=== PATIENT | male | born 1960 | race Hispanic/Latino ===

== ENCOUNTER 2017-04-02 06:52 | Inpatient (IN) | payer OTHER, SELFPAY ==
[~2017-04-02] VITALS: Ht 157.5 cm; Wt 81.9 kg
[2017-04-02] MEDS ORDERED: SODIUM CHLORIDE 0.9% 1000ML 1,000 ML IV ONE ×2 (07:23→11:13)
[2017-04-02] MEDS ORDERED: ONDANSETRON HCL 4 MG/2 ML VIAL ONE (07:23)
[2017-04-02] MEDS ORDERED: MORPHINE SULFATE 4 MG/1ML SYG ONE ×2 (07:24→09:44)
[2017-04-02 07:26] LABS: BASOPHILS % (AUTO) 0.4 % (0.0-5.0); EOSINOPHILS % (AUTO) 0.3 % (0.0-8.0); HEMATOCRIT 45.4 % (42-54); LYMPHOCYTES % (AUTO) 7.6 % (21.0-51.0); MEAN CORPUSCULAR HEMOGLOBIN 30.3 pg (27.0-33.0); MEAN CORPUSCULAR HGB CONC 33.6 g/dL (32.0-36.0); MEAN CORPUSCULAR VOLUME 90.2 fL (79-99); MONOCYTES % (AUTO) 4.5 % (3.0-13.0); NEUTROPHILS % (AUTO) 87.2 % (40.0-77.0); PLATELET COUNT (AUTO) 198 K/uL (130-400); RED BLOOD CELL COUNT(AUTO) 5.04 MIL/uL (4.50-6.20); RED CELL DISTRIBUTION WIDTH 13.7 % (11.0-15.5); WHITE BLOOD COUNT (AUTO) 15.2 K/uL (4.8-10.8)
[2017-04-02] MEDS ORDERED: IOPAMIDOL-370 75 ML VIAL IV ONE (07:32)
[2017-04-02 07:45] LABS: POTASSIUM 3.8 mmol/L (3.5-5.1)
[2017-04-02 07:51] LABS: ALBUMIN 3.9 g/dL (3.5-5.0); BILIRUBIN,TOTAL 0.5 mg/dL (0.2-1.0); TOTAL PROTEIN, SERUM 7.9 g/dL (6.0-8.3)
[2017-04-02 08:56] LABS: APPEARANCE,URINE Clear (CLEAR); BILIRUBIN,URINE Negative (NEGATIVE); COLOR,URINE Yellow (YELLOW); GLUCOSE, URINE (UA) Negative (NEGATIVE); KETONES,URINE Trace mg/dL (NEGATIVE); LEUKOCYTE ESTERASE ,URINE Negative (NEGATIVE); NITRATE,URINE Negative (NEGATIVE); OCCULT BLOOD,URINE Negative (NEGATIVE); PH,URINE 7.5 (5.0-8.0); PROTEIN,URINE Negative (NEGATIVE); UROBILINOGEN,URINE 0.2 mg/dL (0.2-1.0)
[2017-04-02] MEDS ORDERED: ZOSYN 3.375GM+NS 50ML 50 ML IV ONE (09:24)
[2017-04-02 09:26] LABS: BACTERIA,URINE Rare /HPF (None Seen); RBC,URINE 0-1 /HPF (0-1); WBC,URINE None Seen /HPF (0-1)
[2017-04-02 09:27] LABS: SQUAMOUS EPITHELIAL CELL,UR None Seen /LPF (0-2)
[2017-04-02] MEDS ORDERED: KETOROLAC TROMETHAMINE 15MG/ML ONE ×2 (10:04→10:06)
[2017-04-02] MEDS ORDERED: LACTULOSE 20 GM/30 ML UDCUP PO PRN (10:30)
[2017-04-02] MEDS ORDERED: ACETAMINOPHEN 325 MG TAB PO PRN ×2 (10:30)
[2017-04-02] MEDS ORDERED: ONDANSETRON HCL 4 MG/2 ML VIAL IV PRN (10:30)
[2017-04-02] MEDS ORDERED: LABETALOL 20 MG/4 ML DISP.SYRIN IV PRN (10:30)
[2017-04-02] MEDS ORDERED: GUAIFENESIN-DM 200/20 MG 10 ML PO PRN (10:30)
[2017-04-02] MEDS ORDERED: MORPHINE SULFATE 2 MG/ML 1ML SYG IV PRN (10:30)
[2017-04-02] MEDS ORDERED: NITROGLYCERIN 0.4 MG SL TAB SL PRN (10:30)
[2017-04-02] MEDS ORDERED: MAG HYDROX/AL HYDROX/SIMETH ES 30 ML SUSP UDCUP PO PRN (10:30)
[2017-04-02] MEDS ORDERED: ACETAMINOPHEN-CODEINE 300/30MG TAB PO PRN ×2 (10:30)
[2017-04-02] MEDS ORDERED: LEVOFLOXACIN 500 MG/D5W 100 ML 100 ML ONE (11:13)
[2017-04-02] MEDS ORDERED: FAMOTIDINE/PF 20 MG/2 ML VIAL IV ONE (11:14)
[2017-04-02 13:00] VITALS: BP 158/92
[2017-04-02] MEDS: METRONIDAZOLE 500MG/100ML BAG 100 ML IV SCH ×2 (14:29→20:39)
[2017-04-02] MEDS: SODIUM CHLORIDE 0.9% 1000ML 1,000 ML IV SCH ×2 (14:30→20:39)
[2017-04-02] MEDS: MORPHINE SULFATE 4 MG/1ML SYG IV PRN ×2 (14:46→19:33)
[2017-04-02 16:00] VITALS: BP 128/84
[2017-04-02 19:59] VITALS: BP 150/90
[2017-04-02] MEDS: FAMOTIDINE/PF 20 MG/2 ML VIAL IV SCH (20:39)
[2017-04-03] VITALS (30 sets, daily range): BP systolic 98–156; BP diastolic 51–98
[2017-04-03] MEDS: METRONIDAZOLE 500MG/100ML BAG 100 ML IV SCH ×2 (04:57→14:09)
[2017-04-03] MEDS: SODIUM CHLORIDE 0.9% 1000ML 1,000 ML IV SCH ×2 (04:59→20:45)
[2017-04-03 06:11] LABS: HEMATOCRIT 40.6 % (42-54); MEAN CORPUSCULAR HEMOGLOBIN 30.7 pg (27.0-33.0); MEAN CORPUSCULAR HGB CONC 33.8 g/dL (32.0-36.0); PLATELET COUNT (AUTO) 178 K/uL (130-400); RED BLOOD CELL COUNT(AUTO) 4.46 MIL/uL (4.50-6.20); RED CELL DISTRIBUTION WIDTH 14.2 % (11.0-15.5); WHITE BLOOD COUNT (AUTO) 12.4 K/uL (4.8-10.8)
[2017-04-03] MEDS ORDERED: BUPIVACAINE/PF 0.5% 30ML VIAL ONE (06:11)
[2017-04-03 06:31] LABS: CREATININE 1.4 mg/dL (0.5-1.5); POTASSIUM 3.6 mmol/L (3.5-5.1)
[2017-04-03] MEDS ORDERED: SUCCINYLCHOLINE 200MG/10ML SYR ONE (07:15)
[2017-04-03] MEDS ORDERED: ONDANSETRON HCL 4 MG/2 ML VIAL ONE ×2 (07:15→07:39)
[2017-04-03] MEDS ORDERED: DEXAMETHASONE SOD PHOSPHATE 10MG/ML 1ML VIAL ONE ×2 (07:15→07:39)
[2017-04-03] MEDS ORDERED: LIDOCAINE PF 2% 5ML ABBOJECT ONE (07:15)
[2017-04-03] MEDS ORDERED: MIDAZOLAM HCL 1 MG/ML 2ML VIAL ONE (07:16)
[2017-04-03] MEDS ORDERED: FENTANYL CITRATE PF 50 MCG/1 ML 2ML VIAL ONE ×2 (07:16→07:40)
[2017-04-03] MEDS ORDERED: CALDOLOR 800MG+NS 250ML 250 ML IV ONE (07:20)
[2017-04-03] MEDS ORDERED: ROCURONIUM BROMIDE 10MG/1ML 5ML VL ONE (07:21)
[2017-04-03] MEDS ORDERED: PROPOFOL 10 MG/ML 20ML VIAL IV ONE (07:21)
[2017-04-03] MEDS ORDERED: LIDOCAINE HCL 4% LTA SOL 4 ML VIAL ONE (07:39)
[2017-04-03] MEDS: FAMOTIDINE/PF 20 MG/2 ML VIAL IV SCH ×2 (09:00→20:45)
[2017-04-03] MEDS: LEVOFLOXACIN 500 MG/D5W 100 ML 100 ML IV SCH (09:39)
[2017-04-04] VITALS (7 sets, daily range): BP systolic 150–185; BP diastolic 88–116
[2017-04-04] MEDS: METRONIDAZOLE 500MG/100ML BAG 100 ML IV SCH ×4 (02:02→20:41)
[2017-04-04] MEDS: SODIUM CHLORIDE 0.9% 1000ML 1,000 ML IV SCH ×2 (02:24→12:28)
[2017-04-04] MEDS: FAMOTIDINE/PF 20 MG/2 ML VIAL IV SCH ×2 (08:18→20:47)
[2017-04-04] MEDS: HYDRALAZINE HCL 20 MG/ML VIAL IV PRN ×2 (10:29→18:48)
[2017-04-04] MEDS: LEVOFLOXACIN 500 MG/D5W 100 ML 100 ML IV SCH (10:29)
[2017-04-04] MEDS ORDERED: AMOX-429 PO (11:14)
[2017-04-04] MEDS: HYDROCHLOROTHIAZIDE 25 MG TABLET PO SCH (12:12)
[2017-04-04] MEDS: LACTOBACILLUS RHAMNOSUS GG 1 EACH CAP.SPRINK PO SCH ×2 (12:12→17:50)
[2017-04-05] VITALS (9 sets, daily range): BP systolic 129–167; BP diastolic 84–109
[2017-04-05] MEDS: METRONIDAZOLE 500MG/100ML BAG 100 ML IV SCH ×3 (05:20→21:17)
[2017-04-05] MEDS: SODIUM CHLORIDE 0.9% 1000ML 1,000 ML IV SCH ×2 (05:20→08:16)
[2017-04-05] MEDS: HYDRALAZINE HCL 20 MG/ML VIAL IV PRN ×2 (05:27→15:09)
[2017-04-05] MEDS: LACTOBACILLUS RHAMNOSUS GG 1 EACH CAP.SPRINK PO SCH ×3 (08:09→16:51)
[2017-04-05] MEDS: HYDROCHLOROTHIAZIDE 25 MG TABLET PO SCH (08:09)
[2017-04-05] MEDS: FAMOTIDINE/PF 20 MG/2 ML VIAL IV SCH ×2 (08:09→21:17)
[2017-04-05] MEDS: LEVOFLOXACIN 500 MG/D5W 100 ML 100 ML IV SCH (08:09)
[2017-04-05] MEDS ORDERED: LOSARTAN/HYDROCHLOROTHIAZIDE 50-12.5MG TABLET PO SCH (09:00)
[2017-04-05] MEDS: LOSARTAN/HYDROCHLOROTHIAZIDE 50-12.5MG TABLET PO SCH (11:16)
[2017-04-05] MEDS: ACETAMINOPHEN-CODEINE 300/30MG TAB PO PRN (16:51)
[2017-04-05] MEDS ORDERED: CLONIDINE HCL 0.1 MG TABLET PO PRN (17:30)
[2017-04-06] VITALS (7 sets, daily range): BP systolic 141–168; BP diastolic 86–109
[2017-04-06] MEDS: METRONIDAZOLE 500MG/100ML BAG 100 ML IV SCH ×3 (05:26→20:17)
[2017-04-06 05:37] LABS: HEMATOCRIT 39.6 % (42-54); MEAN CORPUSCULAR HEMOGLOBIN 30.8 pg (27.0-33.0); MEAN CORPUSCULAR HGB CONC 33.7 g/dL (32.0-36.0); MEAN CORPUSCULAR VOLUME 91.5 fL (79-99); PLATELET COUNT (AUTO) 203 K/uL (130-400); RED BLOOD CELL COUNT(AUTO) 4.33 MIL/uL (4.50-6.20); RED CELL DISTRIBUTION WIDTH 14.5 % (11.0-15.5); WHITE BLOOD COUNT (AUTO) 8.5 K/uL (4.8-10.8)
[2017-04-06] MEDS: LACTOBACILLUS RHAMNOSUS GG 1 EACH CAP.SPRINK PO SCH ×3 (09:20→17:38)
[2017-04-06] MEDS: LOSARTAN/HYDROCHLOROTHIAZIDE 50-12.5MG TABLET PO SCH (09:20)
[2017-04-06] MEDS: FAMOTIDINE/PF 20 MG/2 ML VIAL IV SCH ×2 (09:20→20:17)
[2017-04-06] MEDS: LEVOFLOXACIN 500 MG/D5W 100 ML 100 ML IV SCH (13:09)
[2017-04-06] MEDS: HYDRALAZINE HCL 20 MG/ML VIAL IV PRN (17:39)
[2017-04-06] MEDS: AMLODIPINE BESYLATE 5 MG TAB PO SCH (18:30)
[2017-04-06] MEDS: ACETAMINOPHEN-CODEINE 300/30MG TAB PO PRN (22:19)
[2017-04-07] VITALS: BP 131/82
[2017-04-07 04:00] VITALS: BP 138/84
[2017-04-07] MEDS: METRONIDAZOLE 500MG/100ML BAG 100 ML IV SCH (05:27)
[2017-04-07 07:30] VITALS: BP 147/86
[2017-04-07] MEDS: AMLODIPINE BESYLATE 5 MG TAB PO SCH (08:26)
[2017-04-07] MEDS: FAMOTIDINE/PF 20 MG/2 ML VIAL IV SCH (08:26)
[2017-04-07] MEDS: LACTOBACILLUS RHAMNOSUS GG 1 EACH CAP.SPRINK PO SCH (08:26)
[2017-04-07] MEDS: LOSARTAN/HYDROCHLOROTHIAZIDE 50-12.5MG TABLET PO SCH (08:27)
[2017-04-07] MEDS ORDERED: LOSA1TAB42 PO (10:07)
== END 2017-04-07 11:12 | disposition home or self-care (01) | DRG 340 ==
LOC: EDH 06:52 → EDHIP 06:53 → 4BH 12:50
PROVIDERS: ADMIT Internal Medicine; ATTEND Internal Medicine
PROC: 0DTJ4ZZ Resection of Appendix, Percutaneous Endoscopic Approach (ICD-10-PCS; principal; 2017-04-03 07:31)
DX: K35.2 Acute appendicitis with generalized peritonitis (principal); I10 Essential (primary) hypertension
CPT/HCPCS: 36415; 74177; 80048; 80053; 81001; 82150; 83690; 84484; 85025; 85027; 88302; 93005; J0330; J0360; J1100; J1741; J1885; J1956; J2001; J2250; J2270; J2405; J2543; J2704; J3010; J3490; J7030; J7120; Q9967